=== PATIENT | male | born 1985 | race Caucasian/White ===

== ENCOUNTER 2020-10-07 16:39 | Emergency (ER) | payer SELFPAY ==
[~2020-10-07 16:39] MED LIST: Iopamidol 370 76% 100 ML VIAL ONE
[2020-10-07 17:07] LABS: #Lymphocytes 1.5 thou/uL (1.20-3.40); #Monocytes 0.7 thou/uL (0.11-0.59); #Neutrophils 17.6 thou/uL (1.40-6.50); %Basophils 0.2 % (0.0-1.0); %Eosinophils 0.1 % (0.0-10.0); %Lymphocytes 7.5 % (21.0-51.0); %Monocytes 3.3 % (0.0-10.0); %Neutrophils 88.8 % (42.0-75.0); Hemoglobin 17.3 g/dL (14.0-18.0); Mean Corpuscular HGB CONC 32.9 g/dL (32.0-36.0); Mean Corpuscular Hemoglobin 29.8 pg (27.0-31.0); Mean Corpuscular Volume 90.7 fL (78.0-98.0); Mean Platelet Volume 5.7 fL (7.4-10.4); Platelet Count 460 thou/uL (130-400); RBC Distribution Width 15.8 % (11.5-14.5); Red Blood Cell (RBC) Count 5.79 mill/uL (4.70-6.10); White Blood Cell (WBC) Count 19.8 thou/uL (4.8-10.8)
[2020-10-07] MEDS ORDERED: Fentanyl 100 MCG/2 ML VIAL ONE (17:09)
[2020-10-07] MEDS ORDERED: Glycopyrrolate 0.4 MG/ 2 ML VIAL ONE (17:09)
[2020-10-07] MEDS ORDERED: Ondansetron PF 4 MG/2 ML Vial ONE ×2 (17:09→18:05)
[2020-10-07] MEDS ORDERED: Famotidine In NaCl 20 mg/50 ml Premix Bag ONE (17:09)
[2020-10-07 17:24] LABS: ALT (SGPT) 75 U/L (8-55); AST (SGOT) 40 U/L (5-34); Albumin 4.9 g/dL (3.5-5.0); Alkaline Phosphatase 109 U/L (40-110); Anion Gap 25 mmol/L (10-20); BUN (Urea Nitrogen) 5 mg/dL (8.9-20.6); Bilirubin, Total 0.2 mg/dL (0.2-1.2); Calc. Creatinine Clearance 0 mL/min (70-130); Calcium 10.9 mg/dL (7.8-10.44); Carbon Dioxide 23 mmol/L (22-29); Chloride 95 mmol/L (98-107); Globulin 4.2 g/dL (2.4-3.5); Glucose 171 mg/dL (70-105); Lipase 297 U/L (8-78); Potassium 3.9 mmol/L (3.5-5.1); Protein, Total 9.1 g/dL (6.0-8.3); Sodium 139 mmol/L (136-145)
[2020-10-07 17:53] LABS: Bilirubin Negative (Negative); Blood, Urine Negative (Negative); Clarity Clear (Clear); Glucose, Urine (Dipstick) Negative (Negative); Ketone, Urine Negative (Negative); Leukocyte Trace (Negative); Nitrite Negative (Negative); Protein, Urine (Dipstick) Negative (Neg-Trace); Urobilinogen 0.2 mg/dL (Less than 2)
[2020-10-07] MEDS ORDERED: Morphine 4 MG/ML VIAL ONE ×3 (18:04→19:52)
[2020-10-07 18:05] LABS: RBC/HPF None Seen HPF (0-3); WBC/HPF 0-3 HPF (0-3)
[2020-10-07 18:06] LABS: Bacteria/HPF 1+ HPF (None Seen); Renal Epithelial 0-3 HPF (None Seen); Squamous Epithelial 0-3 HPF (0-3)
[2020-10-07] MEDS ORDERED: Piperacillin/Tazobactam 4.5 GM VIAL ONE (18:54)
[2020-10-07] MEDS ORDERED: Ketorolac Tromethamine 30 MG/ML VIAL ONE (18:54)
[2020-10-07] MEDS ORDERED: Sodium Chloride 0.9% 100 ML ONE (18:55)
[2020-10-07 19:55] LABS: Lactic Acid 6.2 mmol/L (0.5-2.2)
== END 2020-10-07 21:30 | disposition short-term general hospital (02) ==
LOC: BURERS 16:39
DX: K85.90 Acute pancreatitis without necrosis or infection, unspecified (principal); F17.210 Nicotine dependence, cigarettes, uncomplicated; Z79.899 Other long term (current) drug therapy
CPT/HCPCS: 36415; 74177; 80053; 81003; 81015; 83605; 83690; 85025; 87040; 87086; 87149; 93005; 94760; 96365; 96367; 96375; 96376; J1885; J2270; J2405; J2543; J3010; J3490; Q9967